=== PATIENT | male | born 1955 | race Two or more races ===

== ENCOUNTER 2020-06-21 13:03 | Inpatient (IN) | payer MEDICARE, OTHER ==
[~2020-06-21] VITALS: Ht 167.6 cm; Wt 70.8 kg
--- NOTE | 2020-06-21 13:07 | NUR ---
Dr Martinez at bedside
--- NOTE | 2020-06-21 13:07 | NUR ---
maria m, from home, had syncopal episode lasted for 10 mins per report BS 240, had jenni toe amputation yesterday, to ER bed 11, hooked to monitor, changed to hosp gown, warm blanket provided, patient aao X 1, breathing even and unlabored. awaiting MD wilson.
[2020-06-21] MEDS ORDERED: IV NS 0.9% 500 ML BAG IV ONE (13:30)
[2020-06-21 13:36] LABS: BASOPHILS # (AUTO) 0.1 /CMM (0.0-0.2); BASOPHILS % (AUTO) 0.6 % (0.0-2.0); EOSINOPHILS % (AUTO) 1.8 % (0.0-6.0); HEMATOCRIT 30 % (39-51); HEMOGLOBIN 9.3 g/dL (13.5-17.5); LYMPHOCYTES # (AUTO) 1.3 /CMM (0.8-4.8); LYMPHOCYTES % (AUTO) 9.3 % (20.0-44.0); MEAN CORPUSCULAR HGB CONC 31 g/dl (31.0-36.0); MEAN CORPUSCULAR VOLUME 91 fL (80-96); MONOCYTES % (AUTO) 6.7 % (2.0-12.0); NEUTROPHILS # (AUTO) 11.7 /CMM (1.8-8.9); NEUTROPHILS % (AUTO) 81.6 % (43.0-81.0); PLATELET COUNT (AUTO) 392 /CMM (150-450); RED BLOOD CELL COUNT(AUTO) 3.25 MIL/uL (4.5-6.0); WHITE BLOOD COUNT (AUTO) 14.4 K/uL (4.3-11.0)
[2020-06-21] MEDS ORDERED: CARV6.252 PO (13:43)
[2020-06-21] MEDS ORDERED: TIMO5DRO18 EACHEYE (13:43)
[2020-06-21] MEDS ORDERED: OMEP40CA13 PO (13:43)
[2020-06-21] MEDS ORDERED: LOSA100T31 PO (13:43)
[2020-06-21] MEDS ORDERED: HYDR-3972 PO (13:43)
[2020-06-21] MEDS ORDERED: INSU100V7 SQ (13:43)
[2020-06-21] MEDS ORDERED: CLOP75TA15 PO (13:43)
[2020-06-21 13:52] LABS: CALCIUM, SERUM 8.1 mg/dL (8.5-10.1); CARBON DIOXIDE 22 mmol/L (21-32); CHLORIDE 106 mmol/L (98-107); CREATININE 1.3 mg/dL (0.6-1.3); GLUCOSE 183 mg/dL (74-106); POTASSIUM 3.8 mmol/L (3.5-5.1); SODIUM SERUM 138 mmol/L (136-145); UREA NITROGEN, BLOOD 11 mg/dL (7-18)
[2020-06-21 14:03] LABS: ALANINE AMINOTRANSFERASE 13 U/L (12-78); ALBUMIN 1.9 g/dL (3.4-5.0); ALKALINE PHOSPHATASE 112 U/L (46-116); ASPARTATE AMINOTRANSFERASE 16 U/L (15-37); BILIRUBIN,DIRECT 0.4 mg/dL (0.0-0.2); BILIRUBIN,TOTAL 0.8 mg/dL (0.2-1.0); TOTAL PROTEIN, SERUM 7.2 g/dL (6.4-8.2)
--- NOTE | 2020-06-21 14:08 | NUR ---
CALLED NURSING SUPP FOR TELE BED.
--- NOTE | 2020-06-21 14:10 | NUR ---
MOVE SHEET SUBMITTED TO ADMITTING AND CALLED FOR TELE BED.
--- NOTE | 2020-06-21 14:16 | NUR ---
RAPID COVID SWAB DONE AND SENT TO LAB.
--- NOTE | 2020-06-21 15:33 | NUR ---
GOT BED 310-2
--- NOTE | 2020-06-21 15:41 | NUR ---
REPORT GIVEN TO FELICIANO UGALDE OF TELE UNIT
[2020-06-21] MEDS ORDERED: HYDROCODONE/APAP 5/325MG TABLET PO PRN ×2 (16:30)
[2020-06-21] MEDS ORDERED: Z GUARD REMEDY 2 OZ OINT TP PRN (16:30)
[2020-06-21] MEDS ORDERED: ONDANSETRON HCL/PF 4 MG/2 ML VIAL IVP PRN (16:30)
[2020-06-21] MEDS ORDERED: MAG HYDROX/AL HYDROX/SIMETH 30 ML UDC PO PRN (16:30)
[2020-06-21] MEDS ORDERED: ACETAMINOPHEN 325 MG TABLET PO PRN (16:30)
[2020-06-21] MEDS ORDERED: ZOLPIDEM TARTRATE 5 MG TABLET PO PRN (16:30)
[2020-06-21] MEDS ORDERED: MAGNESIUM HYDROXIDE 30 ML UDC PO PRN (16:30)
[2020-06-21] MEDS ORDERED: DEXTROSE 50%-WATER 50 ML DISP.SYRIN IV PRN (17:00)
--- NOTE | 2020-06-21 17:00 | NUR ---
MOVEMENT THERAPISTGRINDER OPERATOR NOTES RECEIVED PT VIA JASONRMARTINA FROM ER DEPT AT 1615. PT APPEARS CALM, EASILY AROUSED, A/O X3-4. PT ABLE TO PROVIDE HISTORY. PT TOLERATING RA, WITH NO ACUTE RESPIRATORY DISTRESS NOTED. PT DENIES ANY PAIN OR DISCOMFORT AT THIS TIME WELL. ON TELEMONITORING SR 82, DENIES ANY CHEST PAIN. IVF NS AT 75ML/HR TO RFA G20, INTACT AND FLUID INFUSING WELL. SKIN ASSESSED, PICTURES TAKEN AND FILED IN THE CHART. PER /HAIDI, REFUSED VACCINES. PT KEPT COMFORTABLE IN BED. CALL LIGHT KEPT WITHIN REACH. PT'S BED IN LOWEST, LOCKED POSITION WITH SRX3. WILL ENDORSE TO INCOMING NIGHT NURSE FOR JAMIE.
[2020-06-21] MEDS: BLOOD SUGAR DIAGNOSTIC 1 EACH STRIP IN SCH ×2 (17:18→21:38)
[2020-06-21] MEDS: INSULIN REGULAR, HUMAN 100 UNIT/ML 3 ML VIAL SQ PRN ×2 (17:19→21:44)
[2020-06-21] MEDS: CARVEDILOL 6.25 MG TABLET PO SCH (17:20)
[2020-06-21] MEDS: ENOXAPARIN SODIUM 40 MG/0.4 ML DISP.SYRIN SQ SCH (17:20)
[2020-06-21] MEDS: TIMOLOL 0.5% SOLN OPHTH 5 ML BOTTLE EACHEYE SCH (18:18)
[2020-06-21] MEDS: IV NS 0.9% 1,000 ML IV PRN (18:21)
--- NOTE | 2020-06-21 18:59 | NUR ---
STRATEGIC ACCOUNT MANAGER NOTES PT REMAINS IN BED, AWAKE, A/O X3-4. PT TOLERATING RA, WITH NO ACUTE RESPIRATORY DISTRESS NOTED. PT DENIES ANY PAIN OR DISCOMFORT AT THIS TIME. ON TELEMONITORING SR 80, DENIES ANY CHEST PAIN. IVF NS AT 75ML/HR TO RFA G20, INTACT AND FLUID INFUSING WELL. ALL NEEDS AND CARE ATTENDED. PT KEPT COMFORTABLE IN BED. CALL LIGHT KEPT WITHIN REACH. PT'S BED IN LOWEST, LOCKED POSITION WITH SRX3. WILL ENDORSE TO INCOMING NIGHT NURSE FOR JAMIE.
--- NOTE | 2020-06-21 19:23 | NUR ---
NUCLEAR DESIGN ENGINEER OPENING NOTES RECEIVED PATIENT RESTING IN BED COMFORTABLY; A/OX3-4, BREATHING EVEN NAD UNLABORED; NO SOB NOTED; TOLERATING ROOM AIR WELL; TELE MONITOR READS NORMAL SINUS RHYTHM 95BPM; R FA # 20 INTACT AND PATENT, FLUSHING WELL; NO S/S OF REDNESS OR INFILTRATION NOTED; PATIENT TOLERATING IVF, NS @75ML/HR; INFUSING WELL; SAFETY PRECAUTIONS IMPLEMENTED; BED LOCKED IN LOW POSITION; SIDE RAILSX2; CALL LIGHT WITHIN REACH; WILL CONT TO MONITOR
[2020-06-21 20:00] VITALS: BP 138/71
[2020-06-21] MEDS: INSULIN GLARGINE, 100 UNIT/ML CARTRIDGE SQ SCH (21:44)
[2020-06-22] VITALS: BP 154/76
[2020-06-22 04:00] VITALS: BP 153/79
[2020-06-22] MEDS: IV NS 0.9% 1,000 ML IV PRN ×2 (05:47→21:55)
[2020-06-22] MEDS: BLOOD SUGAR DIAGNOSTIC 1 EACH STRIP IN SCH ×4 (06:40→21:51)
--- NOTE | 2020-06-22 06:41 | NUR ---
COREMAKER CLOSING NOTES PATIENT RESTING IN BED COMFORTABLY; A/OX3-4, IRISH SPEAKING; PATIENT IS BLIND; BREATHING EVEN AND UNLABORED; TOLERATING ROOM AIR WELL; NO SOB NOTED; TELE MONITOR READS SINUS RHYTHM 90S BPM; R FA #20 INTACT AND PATENT, TOLERATING IVF WELL; L HAND #20 S/L INTACT AND PATENT, FLUSHING WELL; PATIENT ABLE TO MAKE NEEDS KNOWN, ALL NEEDS RENDERED; SAFETY PRECAUTIONS IMPLEMENTED; BED LOCKED IN LOW POSITION; SIDE RAILSX2; CALL LIGHT WITHIN REACH; WILL ENDORSE JAMIE TO ONCOMING SHIFT
--- NOTE | 2020-06-22 07:30 | NUR ---
RN Opening note Received patient in bed, AO x 3-4, blindness, able to responds all stimuli, does appears pain or distress. Respiratory even and unlabored on room air, skin is warm to touch, kept clean/dry, intact IV site. Keep in bed locked with elevated HOB for ensure airway and aspiration precaution. Call light within reach, will continue to monitor.
[2020-06-22 07:46] LABS: BASOPHILS # (AUTO) 0.1 /CMM (0.0-0.2); BASOPHILS % (AUTO) 0.8 % (0.0-2.0); EOSINOPHILS % (AUTO) 2.6 % (0.0-6.0); HEMATOCRIT 27 % (39-51); HEMOGLOBIN 8.7 g/dL (13.5-17.5); LYMPHOCYTES # (AUTO) 1.6 /CMM (0.8-4.8); LYMPHOCYTES % (AUTO) 15.8 % (20.0-44.0); MEAN CORPUSCULAR HGB CONC 33 g/dl (31.0-36.0); MEAN CORPUSCULAR VOLUME 90 fL (80-96); MONOCYTES # (AUTO) 0.7 /CMM (0.1-1.30); NEUTROPHILS # (AUTO) 7.7 /CMM (1.8-8.9); NEUTROPHILS % (AUTO) 73.8 % (43.0-81.0); PLATELET COUNT (AUTO) 368 /CMM (150-450); RED BLOOD CELL COUNT(AUTO) 2.99 MIL/uL (4.5-6.0); WHITE BLOOD COUNT (AUTO) 10.4 K/uL (4.3-11.0)
[2020-06-22] MEDS: PANTOPRAZOLE 40 MG TABLET.DR PO SCH (07:48)
[2020-06-22 08:00] VITALS: BP 159/76
[2020-06-22 09:09] LABS: THYROID STIMULATING HORMONE 1.799 uIU/mL (0.358-3.74)
[2020-06-22] MEDS: CLOPIDOGREL BISULFATE 75 MG TABLET PO SCH (09:18)
[2020-06-22] MEDS: LOSARTAN POTASSIUM 50 MG TABLET PO SCH (09:19)
[2020-06-22] MEDS: CARVEDILOL 6.25 MG TABLET PO SCH ×2 (09:19→16:47)
[2020-06-22] MEDS: TIMOLOL 0.5% SOLN OPHTH 5 ML BOTTLE EACHEYE SCH ×2 (09:22→16:49)
[2020-06-22 09:28] LABS: CALCIUM, SERUM 7.8 mg/dL (8.5-10.1); MAGNESIUM 1.7 mg/dL (1.8-2.4); PHOSPHORUS 2.3 mg/dL (2.5-4.9); POTASSIUM 3.4 mmol/L (3.5-5.1)
[2020-06-22] MEDS ORDERED: Magnesium 1GM/D5W 100ML PREMIX 100 ML IV SCH (10:30)
[2020-06-22] MEDS ORDERED: NEUTRA PHOS 1 POWD.PACKET PO ONE (10:30)
[2020-06-22 12:00] VITALS: BP 155/67
--- NOTE | 2020-06-22 12:05 | NUR ---
WOUND CARE CONSULT: PT PRESENTS WITH SURGICAL SITES TO BILATERAL GREAT TOES, PRESENT ON ADMISSION. PT STATES HAD SURGERY ON SUNDAY BUT DOES NOT REMEMBER WHERE SURGERY WAS DONE OR WHO SURGEON IS. RN IS SPEAKING TO FAMILY. RECOMMEND DPM CONSULT. DR LEONG NOTIFED OF CONSULT REQUEST. MD IN AGREEMENT WITH PLAN OF CARE.
[2020-06-22] MEDS: Magnesium 1GM/D5W 100ML PREMIX 100 ML IV SCH ×2 (12:12→14:11)
[2020-06-22 16:00] VITALS: BP 148/80
--- NOTE | 2020-06-22 18:50 | NUR ---
RN Closing note Patient is in bed, talk with over t he phone. Does no appears pain or distress, c/o via nursing office regarding pt has no diaper on and no one feeds patient this morning, explained that we don't use diaper any more and CRAWLER TRACTOR OPERATOR was feeding the patient this morning. Skin is warm to touch, keep clean/dry. Keep bed in locked with elevated HOB for ensure airway. Given reposition and skin care. Call light within reach, will endorse machine turner.
[2020-06-22 19:08] LABS: APPEARANCE,URINE CLEAR (CLEAR); BILIRUBIN,URINE NEGATIVE (NEGATIVE); BLOOD, URINE SMALL Ery/uL (NEGATIVE); COLOR,URINE YELLOW (YELLOW); KETONES,URINE NEGATIVE (NEGATIVE); LEUKOCYTE ESTERASE ,URINE NEGATIVE (NEGATIVE); NITRITE, URINE NEGATIVE (NEGATIVE); PROTEIN,URINE 100 mg/dl (NEGATIVE); UGLUCOSE NEGATIVE (NEGATIVE); UROBILINOGEN,URINE >=8.0 EU/dL (0.2)
[2020-06-22 19:20] LABS: BACTERIA,URINE None seen /HPF (None Seen); SQUAMOUS EPITHELIAL CELL,UR None Seen /HPF (None Seen); WBC,URINE 0-2 /HPF (0-3)
--- NOTE | 2020-06-22 19:30 | NUR ---
television announcer opening note received patient in bed. a/ox 3. patient is blind. tolerating room air. respirations are even and unlabored. no s/s sob noted. external tele monitor reads sinus rhythm hr 65. in no apparent distress. iv access in left hand #20 and RFA #20 running ns@75ml/hr. bed is low and locked hob elevated in semi fowlers, side rials up x2, call light within reach. will continue to monitor.
[2020-06-22 20:00] VITALS: BP 150/75
--- NOTE | 2020-06-22 21:04 | NUR ---
Spoke with Deanna [phone], patient had recent bilateral toe amputation at [facility]. Patient lives locally with family in the second floor apartment. He recently requires a walker with ambulation. He has walker, wheelchair and very old shower chair. Currently on service with [employer] [facility] [phone]. Family does not want SNF placement.Current dc plan is to return home, family requested ambulance transportation. Addendum: 06/22/20 at 2105 by AARON IRIZARRY RN Amended: Links added.
--- NOTE | 2020-06-22 21:05 | NUR ---
rn continuity of care notes received patient from ciarra an. patient in bed head of bed elevated awake alert and oriented x3, able to make needs known, respirations even and unlabored with equal rise and fall of chest, denies any pain or discomfort at this time, on rock wool insulator sr 68. iv site to left hand #20g and right fa #20g intact and patent no redness, no infiltration present ivf running as ordered, safety precautions rendered, low bed and locked, all needs attended at this time remains comfortable, both feet elevated with pillows, all needs attended will continue to monitor, bed alarm in place, patient repositioned.
--- NOTE | 2020-06-22 21:05 | NUR ---
telemarketing sales representative note transfer of care to aureliano UGALDE.
[2020-06-22] MEDS: ENOXAPARIN SODIUM 40 MG/0.4 ML DISP.SYRIN SQ SCH (21:48)
[2020-06-22] MEDS: INSULIN GLARGINE, 100 UNIT/ML CARTRIDGE SQ SCH (21:52)
[2020-06-22] MEDS: INSULIN REGULAR, HUMAN 100 UNIT/ML 3 ML VIAL SQ PRN (21:53)
--- NOTE | 2020-06-22 21:53 | NUR ---
tavern car attendant notes accucheck 104. insulin held per patient "did not eat much today and does not want blood sugar to decrease"
[2020-06-23] VITALS: BP 154/73
[2020-06-23 04:00] VITALS: BP 153/79
[2020-06-23 04:35] VITALS: BP 153/79
[2020-06-23] MEDS: BLOOD SUGAR DIAGNOSTIC 1 EACH STRIP IN SCH ×2 (06:44→12:50)
[2020-06-23] MEDS: INSULIN REGULAR, HUMAN 100 UNIT/ML 3 ML VIAL SQ PRN (06:44)
--- NOTE | 2020-06-23 07:10 | NUR ---
rn closing notes patient in bed head of bed elevated awake alert and oriented x3, able to make needs known, respirations even and unlabored with equal rise and fall of chest, denies any pain or discomfort at this time, on waterproofing mixer sr 65. iv site to left hand #20g and right fa #20g intact and patent no redness, no infiltration present ivf running as ordered, safety precautions rendered, low bed and locked, all needs attended at this time remains comfortable, both feet elevated with pillows, wound care reinforced kept clean and dry, all needs attended will continue to monitor, bed alarm in place, patient repositioned. will endorse to next shift, all needs were attended.
[2020-06-23 07:20] LABS: BASOPHILS # (AUTO) 0.1 /CMM (0.0-0.2); BASOPHILS % (AUTO) 0.6 % (0.0-2.0); EOSINOPHILS % (AUTO) 3.7 % (0.0-6.0); HEMATOCRIT 26 % (39-51); HEMOGLOBIN 8.7 g/dL (13.5-17.5); LYMPHOCYTES # (AUTO) 1.8 /CMM (0.8-4.8); LYMPHOCYTES % (AUTO) 19.5 % (20.0-44.0); MEAN CORPUSCULAR HGB CONC 33 g/dl (31.0-36.0); MEAN CORPUSCULAR VOLUME 88 fL (80-96); MONOCYTES # (AUTO) 0.7 /CMM (0.1-1.30); MONOCYTES % (AUTO) 7.8 % (2.0-12.0); NEUTROPHILS # (AUTO) 6.4 /CMM (1.8-8.9); NEUTROPHILS % (AUTO) 68.4 % (43.0-81.0); PLATELET COUNT (AUTO) 377 /CMM (150-450); RED BLOOD CELL COUNT(AUTO) 2.95 MIL/uL (4.5-6.0); WHITE BLOOD COUNT (AUTO) 9.3 K/uL (4.3-11.0)
--- NOTE | 2020-06-23 07:35 | NUR ---
BREEDER SERVICE TECHNICIAN NOTES PATIENT RECEIVED IN BED, HEAD OF THE BED ELEVATED. ALERT AND ORIENTED X 3 CITIZEN OF [place] SPEAKING. ON ROOM AIR, WITH NO SIGNS OF RESPIRATORY DISTRESS, WITH EVEN NON-LABORED BREATHING, AND NO SOB NOTED. ON TECH BRAZER TESTER, SINUS RHYTHM 64. PATIENT SKIN WARM AND DRY TO TOUCH. PATIENT PRESENTS WITH NO SIGNS OF PAIN OR DISCOMFORT AT THIS TIME. SAFETY PRECAUTIONS IMPLEMENTED WITH BED LOCKED, BED IN THE LOWEST POSITION, BILATERAL SIDE RAILS UP, BED ALARM ON AND CALL LIGHT WITHIN EASY REACH OF PATIENT. WILL CONTINUE TO MONITOR PATIENT.
[2020-06-23 07:50] LABS: ALBUMIN 1.6 g/dL (3.4-5.0); BILIRUBIN,TOTAL 0.5 mg/dL (0.2-1.0); CALCIUM, SERUM 7.6 mg/dL (8.5-10.1); MAGNESIUM 1.8 mg/dL (1.8-2.4); POTASSIUM 3.4 mmol/L (3.5-5.1); TOTAL PROTEIN, SERUM 6.3 g/dL (6.4-8.2)
[2020-06-23 08:00] VITALS: BP 184/81
[2020-06-23] MEDS ORDERED: POTASSIUM CHLORIDE 20 MEQ TAB.PRT.SR PO ONE (08:30)
[2020-06-23] MEDS: PANTOPRAZOLE 40 MG TABLET.DR PO SCH (08:54)
[2020-06-23] MEDS: CARVEDILOL 6.25 MG TABLET PO SCH (09:29)
[2020-06-23] MEDS: CLOPIDOGREL BISULFATE 75 MG TABLET PO SCH (09:29)
[2020-06-23] MEDS: LOSARTAN POTASSIUM 50 MG TABLET PO SCH (09:29)
[2020-06-23] MEDS ORDERED: POTASSIUM CHLORIDE 20 MEQ TAB.PRT.SR PO SCH (10:00)
[2020-06-23 12:00] VITALS: BP 165/74
[2020-06-23] MEDS: TIMOLOL 0.5% SOLN OPHTH 5 ML BOTTLE EACHEYE SCH (12:51)
[2020-06-23] MEDS: IV NS 0.9% 1,000 ML IV PRN (12:55)
[2020-06-23 15:24] VITALS: BP 142/76
--- NOTE | 2020-06-23 16:39 | NUR ---
SKIING INSTRUCTOR NOTES PATIENT ALERT AND ORIENTED X 3. ON ROOM AIR WITH NO SIGNS OF RESPIRATORY DISTRESS, NO SOB NOTED, AND WITH EVEN NON-LABORED BREATHING. REMOVED ID BAND FROM PATIENT. REMOVED IV ACCESS WITH CATHETER TIP INTACT, APPLIED PRESSURE TO SITE. PROVIDED EDUCATION TO PATIENT, AND INFORM TO FOLLOW UP WITH PRIMARY CARE PROVIDER. PATIENT ACCOUNTED FOR ALL BELONGINGS, INFORMED HIM IT WAS PLACED IN A BAG, AND HANDED TO EMT. SKIN ASSESSMENT DONE. PATIENT LEFT UNIT VIA GURNEY AND ACCOMPANIED BY EMT.
== END 2020-06-23 16:38 | disposition home health service (06) | DRG 312 ==
LOC: ER 13:09 → TELE 15:43
PROVIDERS: ATTEND Nurse Practitioner Acute Care
DX: I95.1 Orthostatic hypotension (principal); D72.829 Elevated white blood cell count, unspecified; Z86.73 Personal history of transient ischemic attack (TIA), and cerebral infarction without residual deficits; E11.9 Type 2 diabetes mellitus without complications; Z79.01 Long term (current) use of anticoagulants; Z79.4 Long term (current) use of insulin; Z79.899 Other long term (current) drug therapy; D64.9 Anemia, unspecified; E11.40 Type 2 diabetes mellitus with diabetic neuropathy, unspecified; E78.5 Hyperlipidemia, unspecified; E83.39 Other disorders of phosphorus metabolism; E83.42 Hypomagnesemia; H54.8 Legal blindness, as defined in USA; I10 Essential (primary) hypertension; Z79.02 Long term (current) use of antithrombotics/antiplatelets; R56.9 Unspecified convulsions; Z89.412 Acquired absence of left great toe; T87.81 Dehiscence of amputation stump; Y83.5 Amputation of limb(s) as the cause of abnormal reaction of the patient, or of later complication, without mention of misadventure at the time of the procedure; Y92.009 Unspecified place in unspecified non-institutional (private) residence as the place of occurrence of the external cause
CPT/HCPCS: 36415; 70450-TC; 71045-TC; 80048-TC; 80053-TC; 80061-TC; 80076-TC; 80305; 81000-TC; 82728-TC; 82962-TC; 83540-TC; 83605-TC; 83735-TC; 83880; 84100-TC; 84439-TC; 84443-TC; 84484-TC; 85025-TC; 85730-TC; 87040-TC; 87081-TC; 87086-TC; 92611-TC; 93307-TC; 95819-TC; 97110-TC; 97530-TC; A6253; A6403; A6407; C9803-CS; G0378; J1650; J1815; J3475; J7030; J7040

== ENCOUNTER 2020-09-29 06:46 | Inpatient (IN) | payer MEDICARE, OTHER ==
[~2020-09-29] VITALS: Ht 165.1 cm; Wt 59.0 kg
[~2020-09-29 06:46] MED LIST: CARV6.252 PO; CLOP75TA15 PO; HYDR-3972 PO; INSU100V7 SQ; LOSA100T31 PO; OMEP40CA13 PO; TIMO5DRO18 EACHEYE
--- NOTE | 2020-09-29 07:19 | NUR ---
BLOOD COLLECTED AND SENT WITH VACATION SALES ADVISOR.
--- NOTE | 2020-09-29 07:22 | NUR ---
PATIENT CAME TO ER BED 7 BIBRA FROM C/O ALTERED MENTAL STATUS FOR THE PAST 3 DAYS. PATIENT ARRIVED AND WAS ON 87% RA. PATIENT PLACED ON 6L N/C . ACCORDING TO EMS, PATIENT HAS BEEN ALTERED FOR THE PAST 3 DAYS, BECOMING MORE ALTERED THAN USUAL. PT ALSO HAS BEEN NOTED TO BE VOMITING DARK RED BLOOD. HX OF LEFT SIDED WEAKNESS. PATIENT IS REACTIVE TO PAIN AND WILL MAKE MOANING SOUNDS. CONNECTED TO THE MONITOR. BREATHING EVENLY ON 6L N/C.
[2020-09-29] MEDS ORDERED: IV NS 0.9% 500 ML BAG IV ONE ×2 (07:30→10:30)
--- NOTE | 2020-09-29 07:30 | NUR ---
PATIENT TAKEN TO CT. VIA [facility]
--- NOTE | 2020-09-29 07:30 | NUR ---
RUCHI CALLED RE: PT, UPDATED WITH PT CONDITION WILL CALL BACK LATER
--- NOTE | 2020-09-29 07:50 | NUR ---
RETURNED FROM CT
--- NOTE | 2020-09-29 07:59 | NUR ---
REPORT GIVEN TO JUDITH UGALDE FOR JAMIE.
[2020-09-29 08:14] LABS: ABG BASE EXCESS -12.5 mmol/L; ABG OXYGEN SATURATION 96.4 % (92.0-98.5); ABG PH 7.405 (7.350-7.450); ABG PO2 91.3 mmHg (75.0-100.0); AaDO2 211.4 mmHg; COHb 0.3 % (0.5-1.5); MetHb 0.4 % (0.0-1.5); O2Hb 95.7 % (94.0-97.0); SITE, ABG Left Radial; VENT MODE, BG Nasal Cannula
[2020-09-29 08:39] LABS: BASOPHILS % (AUTO) 0.2 % (0.0-2.0); HEMATOCRIT 37 % (39-51); HEMOGLOBIN 11.8 g/dL (13.5-17.5); LYMPHOCYTES # (AUTO) 2.5 /CMM (0.8-4.8); LYMPHOCYTES % (AUTO) 17.5 % (20.0-44.0); MEAN CORPUSCULAR HGB CONC 32 g/dl (31.0-36.0); MEAN CORPUSCULAR VOLUME 96 fL (80-96); MONOCYTES # (AUTO) 0.5 /CMM (0.1-1.30); MONOCYTES % (AUTO) 3.4 % (2.0-12.0); NEUTROPHILS # (AUTO) 11.4 /CMM (1.8-8.9); NEUTROPHILS % (AUTO) 78.9 % (43.0-81.0); PLATELET COUNT (AUTO) 655 /CMM (150-450); RED BLOOD CELL COUNT(AUTO) 3.86 MIL/uL (4.5-6.0); WHITE BLOOD COUNT (AUTO) 14.5 K/uL (4.3-11.0)
[2020-09-29] MEDS ORDERED: MEGE40TA5 PO (08:42)
[2020-09-29] MEDS ORDERED: FERR325T24 PO (08:42)
[2020-09-29] MEDS ORDERED: TRAM50TA2 PO (08:42)
[2020-09-29] MEDS ORDERED: BRIN10DR EACHEYE (08:46)
[2020-09-29] MEDS ORDERED: RIVA2.5T PO (08:46)
[2020-09-29 09:19] LABS: D-DIMER 2.15 mg/L(FEU (0.17-0.50)
[2020-09-29 10:05] LABS: CALCIUM, SERUM 9.9 mg/dL (8.5-10.1); CARBON DIOXIDE 17 mmol/L (21-32); CHLORIDE 104 mmol/L (98-107); CREATININE 2.9 mg/dL (0.6-1.3); GLUCOSE 176 mg/dL (74-106); POTASSIUM 5.6 mmol/L (3.5-5.1); SODIUM SERUM 140 mmol/L (136-145); UREA NITROGEN, BLOOD 40 mg/dL (7-18)
[2020-09-29 10:18] LABS: ALANINE AMINOTRANSFERASE 166 U/L (12-78); ALBUMIN 2.5 g/dL (3.4-5.0); ALCOHOL, BLOOD < 3 mg/dL (0-0); ALKALINE PHOSPHATASE 201 U/L (46-116); ASPARTATE AMINOTRANSFERASE 122 U/L (15-37); B-TYPE NATRIURETIC PEPTIDE 1056 PG/ML (0-125); TOTAL PROTEIN, SERUM 8.7 g/dL (6.4-8.2)
[2020-09-29] MEDS ORDERED: DEXTROSE 50%-WATER 50 ML DISP.SYRIN IV ONE (10:30)
[2020-09-29] MEDS ORDERED: INSULIN REGULAR, HUMAN 100 UNIT/ML 10 ML VIAL IV ONE (10:30)
[2020-09-29] MEDS ORDERED: SODIUM BICARBONATE SYR 50 MEQ/50 ML DISP.SYRIN IV ONE (10:30)
[2020-09-29] MEDS ORDERED: DEXTROSE 50%-WATER 50 ML DISP.SYRIN ONE (10:48)
[2020-09-29] MEDS ORDERED: INSULIN REGULAR, HUMAN 100 UNIT/ML 10 ML VIAL ONE (10:48)
[2020-09-29] MEDS ORDERED: SODIUM BICARBONATE SYR 50 MEQ/50 ML DISP.SYRIN ONE (10:50)
[2020-09-29 12:03] LABS: BILIRUBIN,TOTAL 0.5 mg/dL (0.2-1.0)
--- NOTE | 2020-09-29 12:31 | NUR ---
ASSUMED CARE. PT STABLE, RR EVEN & UNLABORED. ON TELE, ST. WILL CONT TO MONITOR.
[2020-09-29] MEDS ORDERED: IV NS 0.9% 1,000 ML IV PRN (13:00)
[2020-09-29] MEDS ORDERED: DEXTROSE 50%-WATER 50 ML DISP.SYRIN IV PRN (13:00)
[2020-09-29 13:23] LABS: COLOR,URINE YELLOW (YELLOW); PH,URINE 8.5 (5.0-8.0); PROTEIN,URINE 2+ mg/dl (NEGATIVE)
[2020-09-29 13:24] LABS: BILIRUBIN,URINE NEGATIVE (NEGATIVE); UGLUCOSE NEGATIVE (NEGATIVE)
[2020-09-29 13:25] LABS: LEUKOCYTE ESTERASE ,URINE 2+ (NEGATIVE); NITRITE, URINE NEGATIVE (NEGATIVE); UROBILINOGEN,URINE 0.2 EU/dL (0.2)
[2020-09-29 13:26] LABS: BACTERIA,URINE 1+ /HPF (None Seen); WBC,URINE TOO NUMEROUS TO COUN /HPF (0-3)
[2020-09-29 13:27] LABS: SQUAMOUS EPITHELIAL CELL,UR Few /HPF (None Seen); YEAST,URINE Few /HPF (None Seen)
--- NOTE | 2020-09-29 14:57 | NUR ---
PT STABLE, RR EVEN & UNLABORED. NAD NOTED AT THIS TIME. WILL CONT TO MONITOR.
[2020-09-29] MEDS ORDERED: IV NS 0.9% 1,000 ML IV ONE ×2 (15:00)
[2020-09-29] MEDS ORDERED: CEFTRIAXONE 1GM BAG (ER ONLY) 1 GM/50 ML PIGGYBACK IV ONE (15:00)
[2020-09-29 15:08] LABS: BILIRUBIN,DIRECT 0.2 mg/dL (0.0-0.2)
[2020-09-29] MEDS ORDERED: CEFTRIAXONE 1GM BAG (ER ONLY) 50 ML IV ONE (15:16)
--- NOTE | 2020-09-29 15:42 | NUR ---
STARTED IV FLUIDS & IV ANTIBIOTIC PER ERMD ORDER, PT OLLIE WELL. WILL CONT TO MONITOR.
[2020-09-29] MEDS ORDERED: ONDANSETRON HCL/PF 4 MG/2 ML VIAL IVP PRN (16:30)
[2020-09-29] MEDS ORDERED: ZOLPIDEM TARTRATE 5 MG TABLET PO PRN (16:30)
[2020-09-29] MEDS ORDERED: ACETAMINOPHEN 325 MG TABLET PO PRN (16:30)
[2020-09-29] MEDS ORDERED: MAGNESIUM HYDROXIDE 30 ML UDC PO PRN (16:30)
[2020-09-29] MEDS ORDERED: Z GUARD REMEDY 2 OZ OINT TP PRN (16:30)
--- NOTE | 2020-09-29 17:04 | NUR ---
aide () called to inquire about continuation of treatment at home via home health. case management called with no response. can be reached at
--- NOTE | 2020-09-29 17:22 | NUR ---
PT VSS. RR EVEN & UNLABORED. ON TELE ST. WILL CONT TO MONITOR.
[2020-09-29 17:27] LABS: SERUM AMMONIA 100 umol/L (11-32)
[2020-09-29] MEDS: BLOOD SUGAR DIAGNOSTIC 1 EACH STRIP IN SCH (18:17)
[2020-09-29 18:33] LABS: ABG BASE EXCESS -12.4 mmol/L; ABG OXYGEN SATURATION 76.7 % (92.0-98.5); ABG PCO2 19.5 mmHg (35.0-45.0); AaDO2 158.3 mmHg; COHb 0.3 % (0.5-1.5); MetHb 0.6 % (0.0-1.5); SITE, ABG Left Radial
[2020-09-29] MEDS ORDERED: Sodium Bicarbonate 100 MEQ in IV D5/0.45 NACL 1,000 ML IV PRN (19:00)
[2020-09-29] MEDS: INSULIN REGULAR, HUMAN 100 UNIT/ML 3 ML VIAL SQ PRN (20:03)
[2020-09-29] MEDS: VANCOMYCIN 0.75 GM in IV D5W 250 ML IV SCH (21:29)
[2020-09-29 21:41] LABS: BASOPHILS # (AUTO) 0.1 /CMM (0.0-0.2); HEMOGLOBIN 9.5 g/dL (13.5-17.5); LYMPHOCYTES # (AUTO) 1.8 /CMM (0.8-4.8); RED BLOOD CELL COUNT(AUTO) 3.09 MIL/uL (4.5-6.0)
[2020-09-29 21:47] LABS: BASOPHILS % (AUTO) 0.5 % (0.0-2.0); HEMATOCRIT 30 % (39-51); LYMPHOCYTES % (AUTO) 8.1 % (20.0-44.0); MEAN CORPUSCULAR HGB CONC 32 g/dl (31.0-36.0); MEAN CORPUSCULAR VOLUME 96 fL (80-96); MONOCYTES % (AUTO) 4.4 % (2.0-12.0); NEUTROPHILS # (AUTO) 19.4 /CMM (1.8-8.9); PLATELET COUNT (AUTO) 423 /CMM (150-450); WHITE BLOOD COUNT (AUTO) 22.3 K/uL (4.3-11.0)
[2020-09-29 21:59] LABS: ALBUMIN 1.8 g/dL (3.4-5.0); BILIRUBIN,TOTAL 0.4 mg/dL (0.2-1.0); CALCIUM, SERUM 8.6 mg/dL (8.5-10.1); CREATININE 2.9 mg/dL (0.6-1.3); MAGNESIUM 2.2 mg/dL (1.8-2.4); PHOSPHORUS 3.5 mg/dL (2.5-4.9); POTASSIUM 4.3 mmol/L (3.5-5.1); TOTAL PROTEIN, SERUM 6.5 g/dL (6.4-8.2)
[2020-09-29] MEDS: HEPARIN SODIUM, PORCINE 5000 UNITS/1 ML VIAL SQ SCH (22:02)
[2020-09-29] MEDS: ZOSYN IVPB 3.375 G in IV D5W 50ml IV SCH (22:43)
[2020-09-29 22:56] LABS: FERRITIN 1856 ng/mL (8-388)
[2020-09-29 23:07] LABS: C-REACTIVE PROTEIN 17.5 mg/dL (0.0-0.9)
[2020-09-29 23:23] LABS: CREATINE KINASE, TOTAL 51 U/L (39-308); THYROID STIMULATING HORMONE 1.728 uIU/mL (0.358-3.74)
[2020-09-29] MEDS: FLUCONAZOLE IN NS 100 MG in PREMIX 1 EA IV SCH ×2 (23:25)
[2020-09-30] MEDS: BLOOD SUGAR DIAGNOSTIC 1 EACH STRIP IN SCH ×4 (01:01→17:30)
[2020-09-30] MEDS: INSULIN REGULAR, HUMAN 100 UNIT/ML 3 ML VIAL SQ PRN ×2 (01:15→06:17)
[2020-09-30] MEDS: ZOSYN IVPB 3.375 G in IV D5W 50ml IV SCH ×4 (03:17→21:00)
[2020-09-30 06:17] LABS: BASOPHILS % (AUTO) 0.1 % (0.0-2.0); HEMATOCRIT 26 % (39-51); HEMOGLOBIN 8.5 g/dL (13.5-17.5); LYMPHOCYTES # (AUTO) 1.8 /CMM (0.8-4.8); LYMPHOCYTES % (AUTO) 9.1 % (20.0-44.0); MEAN CORPUSCULAR HGB CONC 33 g/dl (31.0-36.0); MEAN CORPUSCULAR VOLUME 94 fL (80-96); NEUTROPHILS # (AUTO) 16.7 /CMM (1.8-8.9); NEUTROPHILS % (AUTO) 85.8 % (43.0-81.0); PLATELET COUNT (AUTO) 429 /CMM (150-450); RED BLOOD CELL COUNT(AUTO) 2.73 MIL/uL (4.5-6.0); WHITE BLOOD COUNT (AUTO) 19.5 K/uL (4.3-11.0)
[2020-09-30 06:28] LABS: CALCIUM, SERUM 8.3 mg/dL (8.5-10.1); CREATININE 2.6 mg/dL (0.6-1.3); PHOSPHORUS 2.3 mg/dL (2.5-4.9); POTASSIUM 3.3 mmol/L (3.5-5.1)
[2020-09-30] MEDS: HEPARIN SODIUM, PORCINE 5000 UNITS/1 ML VIAL SQ SCH ×2 (10:01→21:00)
--- NOTE | 2020-09-30 10:42 | NUR ---
[facility] CALLED CHEMICAL ENGRAVER PAGED.
[2020-09-30 10:55] LABS: ABG BASE EXCESS -4.3 mmol/L; ABG OXYGEN SATURATION 92.8 % (92.0-98.5); ABG PCO2 24.2 mmHg (35.0-45.0); ABG PH 7.487 (7.350-7.450); ABG PO2 69.2 mmHg (75.0-100.0); AaDO2 619.6 mmHg; COHb 0.3 % (0.5-1.5); MetHb 0.5 % (0.0-1.5); O2Hb 92.1 % (94.0-97.0); SITE, ABG Right Radial; VENT MODE, BG NRB
--- NOTE | 2020-09-30 11:05 | NUR ---
REPORT GIVEN TO TANJA UGALDE FOR JAMIE.
--- NOTE | 2020-09-30 11:15 | NUR ---
pt placed on nrb at 15L/min. satting at 97%. dr. sheriff made aware. abg done by rt. results sent to dr. sheriff. dr. aceves made aware as well.
--- NOTE | 2020-09-30 11:37 | NUR ---
bs checked 163. sliding scale coverage held. pt unable to have any po intake.
--- NOTE | 2020-09-30 11:45 | NUR ---
per dr. aceves, he will come to see pt later
--- NOTE | 2020-09-30 12:15 | NUR ---
seen by dr. aceves by bedside Addendum: 09/30/20 at [address] aceves pt needs an icu bed
--- NOTE | 2020-09-30 13:15 | NUR ---
brought to ct
[2020-09-30] MEDS ORDERED: LACTULOSE 10 G/15 ML UDC (PYXIS) PO PRN (13:30)
--- NOTE | 2020-09-30 13:45 | NUR ---
dr. sheriff notified of cxray
--- NOTE | 2020-09-30 14:16 | NUR ---
notified supervisor spinning regarding needs for icu bed
--- NOTE | 2020-09-30 15:28 | NUR ---
Spoke with Deanna [phone], patient lives locally with family in the second floor apartment. Patient is confined to bed and chair most of the time due to recent bilateral toes amputation. He own a walker, wheelchair and shower chair. [facility] [phone]. does not want SNF placement and he has good family support. Pcp is Dr. Bateman in [place] [phone]. Current dc plan is to return home, family requested ambulance transportation. Addendum: 09/30/20 at 1529 by AARON IRIZARRY RN Amended: Links added.
[2020-09-30] MEDS ORDERED: IV D5/0.45 NACL 1,000 ML IV PRN (16:00)
[2020-09-30] MEDS: ACETYLCYSTEINE 10% SOLN 400 MG/4 ML VIAL NEB SCH (16:59)
[2020-09-30] MEDS: ALBUTEROL HALF STRENGTH 1.25 MG/3 ML VIAL.NEB NEB SCH ×2 (16:59→19:30)
[2020-09-30] MEDS: IPRATROPIUM NEB FS 0.5 MG/2.5 ML AMPUL.NEB NEB SCH ×2 (16:59→19:30)
--- NOTE | 2020-09-30 17:30 | NUR ---
bs checked 234
[2020-09-30] MEDS: VANCOMYCIN 0.75 GM in IV D5W 250 ML IV SCH (20:20)
[2020-09-30] MEDS ORDERED: IPRATROPIUM NEB FS 0.5 MG/2.5 ML AMPUL.NEB ONE ×2 (20:41→23:46)
[2020-09-30] MEDS ORDERED: ALBUTEROL HALF STRENGTH 1.25 MG/3 ML VIAL.NEB ONE ×2 (20:41→23:46)
--- NOTE | 2020-09-30 20:49 | NUR ---
RT AT BEDSIDE FOR BREATHING TREATMENT.
--- NOTE | 2020-09-30 21:16 | NUR ---
er md spoke to dr. gabino sanford regarding pt change on condition and pt family request to place pt on hospice.
--- NOTE | 2020-09-30 21:17 | NUR ---
RT AT BEDSIDE FOR ABG.
[2020-09-30] MEDS: FLUCONAZOLE IN NS 100 MG in PREMIX 1 EA IV SCH ×2 (21:49)
--- NOTE | 2020-09-30 22:11 | NUR ---
heparin held due to pos internal bleeding and decreasing h/h
--- NOTE | 2020-09-30 22:11 | NUR ---
HEPARIN WAS HELD DUE TO HGB LEVEL DROP FROM 11.8 TO 8.5. THERE WAS A REPORT OF AN EPISODE OF "DARK VOMITING A FEW DAYS AGO" ON TRIAGE. CHEN MADE AWARE OF THE SITUATION AND HELD HEPARIN, W/ NO NEW ORDER AT THIS TIME. WILL CONT TO MONITOR
--- NOTE | 2020-09-30 23:45 | NUR ---
RT AWARE OF BREATHING TREATMENT.
[2020-09-30] MEDS ORDERED: ACETYLCYSTEINE 10% SOLN 400 MG/4 ML VIAL ONE (23:55)
[2020-10-01] MEDS: IPRATROPIUM NEB FS 0.5 MG/2.5 ML AMPUL.NEB NEB SCH ×5 (00:09→15:30)
[2020-10-01] MEDS: ALBUTEROL HALF STRENGTH 1.25 MG/3 ML VIAL.NEB NEB SCH ×5 (00:09→15:30)
[2020-10-01] MEDS: ACETYLCYSTEINE 10% SOLN 400 MG/4 ML VIAL NEB SCH ×3 (00:09→15:30)
[2020-10-01] MEDS: BLOOD SUGAR DIAGNOSTIC 1 EACH STRIP IN SCH ×4 (00:41→17:42)
[2020-10-01] MEDS: INSULIN REGULAR, HUMAN 100 UNIT/ML 3 ML VIAL SQ PRN ×3 (00:49→08:37)
[2020-10-01] MEDS: ZOSYN IVPB 3.375 G in IV D5W 50ml IV SCH ×3 (02:46→15:14)
[2020-10-01] MEDS ORDERED: IPRATROPIUM NEB FS 0.5 MG/2.5 ML AMPUL.NEB ONE (03:28)
[2020-10-01] MEDS ORDERED: ALBUTEROL HALF STRENGTH 1.25 MG/3 ML VIAL.NEB ONE (03:28)
--- NOTE | 2020-10-01 04:04 | NUR ---
PT REMAINS IN BED, PROVIDED WITH BLANKET AND A PILLOW. PT CURRENTLY ON 15L NON REBREATHER. SAT 100%.
[2020-10-01] MEDS: HEPARIN SODIUM, PORCINE 5000 UNITS/1 ML VIAL SQ SCH ×2 (05:00→13:08)
[2020-10-01 06:13] LABS: BILIRUBIN,TOTAL 0.3 mg/dL (0.2-1.0); CALCIUM, SERUM 8.1 mg/dL (8.5-10.1); CREATININE 2.3 mg/dL (0.6-1.3); POTASSIUM 2.9 mmol/L (3.5-5.1); TOTAL PROTEIN, SERUM 5.5 g/dL (6.4-8.2)
[2020-10-01 06:18] LABS: ALBUMIN 1.4 g/dL (3.4-5.0)
--- NOTE | 2020-10-01 06:19 | NUR ---
LAB CALLED REGARDING ALBUMIN 1.4, GLUCOSE 351. WILL NOTIFY
--- NOTE | 2020-10-01 06:43 | NUR ---
pt remains in bed sleeping. 380mls emptied out of bocanegra cath, insuline given. in no apparent pain or dicomfort at the moment vss
[2020-10-01 08:07] LABS: PTH, INTACT 37 pg/mL (15-65)
--- NOTE | 2020-10-01 08:07 | NUR ---
bs checked 251
--- NOTE | 2020-10-01 08:30 | NUR ---
pt resting in bed comfortably no distress noted. still on nrb at 15l satting at 100%. called case management to inform that daughter wants hospice. per coby goodman she will contact daughter
--- NOTE | 2020-10-01 08:41 | NUR ---
AVIONICS SYSTEM ENGINEER AT BEDSIDE
--- NOTE | 2020-10-01 11:20 | NUR ---
PT RECEIVED AND RESUMED CARE. IN BED SLEEPING. NAD NOTED. BREATHING EVEN AND UNLABORED. ON FNON REBREATHER MASK @ 15 LPM SATTING @ 99%. F/C NOPTED WITH 40ML OUTPUT. NS RUNNING @ 100MLS/HR. VSS
[2020-10-01] MEDS ORDERED: POTASSIUM CHLORIDE 20 MEQ TAB.PRT.SR PO SCH (11:30)
[2020-10-01] MEDS: POTASSIUM CL. PREMIX PERIPHER. 50 ML IV SCH ×4 (12:15→15:55)
[2020-10-01 13:11] LABS: *SPE A/G RATIO 0.6 (0.7-1.7); *SPE ALBUMIN 2.1 g/dL (2.9-4.4); *SPE ALPHA-1-GLOBULIN 0.4 g/dL (0.0-0.4); *SPE ALPHA-2-GLOBULIN 1.1 g/dL (0.4-1.0); *SPE BETA GLOBULIN 0.9 g/dL (0.7-1.3); *SPE GLOBULIN, TOTAL 3.3 g/dL (2.2-3.9); *SPE M-SPIKE Not Observed g/dL (Not Observed)
--- NOTE | 2020-10-01 13:57 | NUR ---
per rex tenorio, pt will be discharged home, to be under [facility]. fruit picker at 4pm
--- NOTE | 2020-10-01 15:18 | NUR ---
report given to donta an cm at [facility]. [facility] [phone] Addendum: 10/01/20 at 1519 by SHALINI cherry picker operator is at 5pm ambulance
--- NOTE | 2020-10-01 19:21 | NUR ---
REPORT GIVEN TO AMBULANCE EMT. PT LEFT ON JOSE. NAD NOTED.
[2020-10-01 19:22] VITALS: BP 141/79
== END 2020-10-01 19:21 | disposition hospice, home (50) | DRG 871 ==
LOC: ER 06:50 → TRANSITION 17:30
PROVIDERS: ADMIT Nurse Practitioner Acute Care; ATTEND Student in an Organized Health Care Education/Training Program
DX: A41.9 Sepsis, unspecified organism (principal); G93.41 Metabolic encephalopathy; R53.2 Functional quadriplegia; N17.0 Acute kidney failure with tubular necrosis; J18.9 Pneumonia, unspecified organism; N39.0 Urinary tract infection, site not specified; D68.59 Other primary thrombophilia; E87.2 Acidosis; I69.354 Hemiplegia and hemiparesis following cerebral infarction affecting left non-dominant side; J98.11 Atelectasis; Z66 Do not resuscitate; E87.5 Hyperkalemia; H54.8 Legal blindness, as defined in USA; Z79.4 Long term (current) use of insulin; Z20.828 Contact with and (suspected) exposure to other viral communicable diseases; E11.51 Type 2 diabetes mellitus with diabetic peripheral angiopathy without gangrene; Z79.899 Other long term (current) drug therapy; Z79.01 Long term (current) use of anticoagulants; Z79.02 Long term (current) use of antithrombotics/antiplatelets; Z89.422 Acquired absence of other left toe(s); Z89.421 Acquired absence of other right toe(s); I10 Essential (primary) hypertension; E78.5 Hyperlipidemia, unspecified; E86.0 Dehydration; E87.6 Hypokalemia; I70.0 Atherosclerosis of aorta; Y95 Nosocomial condition; R09.02 Hypoxemia
CPT/HCPCS: 36415; 36600; 70450-TC; 71045-TC; 71250-TC; 76700-TC; 80048-TC; 80053-TC; 80061-TC; 81001; 82140-TC; 82248-TC; 82550-TC; 82570-TC; 82728-TC; 82803-TC; 82962-TC; 83605-TC; 83615-TC; 83735-TC; 83880; 83970; 84100-TC; 84155; 84155-TC; 84165; 84300-TC; 84443-TC; 84484-TC; 85025-TC; 85378-TC; 85385-TC; 85730-TC; 86140-TC; 87040-TC; 87081-TC; 87086-TC; 94799-TC; A4216; C9803; G0378; G0480; J0696; J1450; J1644; J1815; J2405; J2543; J3370; J3480; J3490; J7030; J7040; J7060; U0003